=== PATIENT | female | born 1945 | race Caucasian/White ===

== ENCOUNTER 2019-02-18 15:18 | Inpatient (IN) | payer OTHER ==
[~2019-02-18] VITALS: Ht 162.6 cm; Wt 86.6 kg
--- NOTE | 2019-02-18 15:18 | NUR ---
BROUGHT IN BY [facility], PLACED IN BED #1 AND TRIAGED. REPORT GIVEN TO ONEIL
[2019-02-18 15:20] VITALS: BP_SYST 135
--- NOTE | 2019-02-18 15:30 | NUR ---
Patient brought in by EMS for C/C of sudden bowel incontinence that occurred at 1445 this afternoon. The patient reports that she was at [facility] when she had a sudden onset of symptoms, she notes a cramping sensation to lower abdomen. She reports that lost control of her bowel on the way to the woman's restroom. She reports that she was sitting on the toilet and was unable to get up for 20 minutes prior to EMS arriving on scene. She states the only dietary changes were eating sugar free candies last night, and did not eat her normal breakfast. No other changes noted, able to tolerate food or fluids. No head injury at the time, or fall. She reports that she had dizziness and lethargy after incident. No reported fever, chills, chest pain, shortness of breath, nausea, vomiting, diarrhea, slurred speech, back pain or lower extremity swelling. Will continue to follow up and monitor.
--- NOTE | 2019-02-18 15:35 | NUR ---
ER at bedside examining patient.
[2019-02-18 15:56] LABS: BASOPHILS % (AUTO) 0.5 % (0.0-2.0); EOSINOPHILS % (AUTO) 0.3 % (0.0-4.0); HEMOGLOBIN 11.6 g/dL (12.0-16.0); LYMPHOCYTES # (AUTO) 1.4 K/uL (1.0-5.5); MEAN CORPUSCULAR HEMOGLOBIN 31 pg (27-31); MEAN CORPUSCULAR HGB CONC 33 % (32-36); MEAN CORPUSCULAR VOLUME 92 fL (79.0-98.0); MONOCYTES # (AUTO) 0.9 K/uL (0.0-1.0); MONOCYTES % (AUTO) 23.1 % (1.7-9.3); NEUTROPHILS # (AUTO) 1.7 K/uL (1.8-7.7); NEUTROPHILS % (AUTO) 41.1 % (40.0-70.0); RED BLOOD CELL COUNT(AUTO) 3.82 MIL/uL (4.2-6.2); RED CELL DISTRIBUTION WIDTH 15.1 % (9.0-15.0)
[2019-02-18 16:03] LABS: ANION GAP 8 (5-15); CHLORIDE 101 mmol/L (98-107); CREATININE 0.77 mg/dL (0.55-1.30); GLUCOSE 100 mg/dL (70-99); POTASSIUM 3.7 mmol/L (3.5-5.1); SODIUM SERUM 138 mmol/L (136-145); UREA NITROGEN, BLOOD 32 mg/dL (8-21)
[2019-02-18 16:06] LABS: PROTHROMBIN TIME 10.1 SECS (9.5-12.5)
[2019-02-18 16:09] LABS: ALANINE AMINOTRANSFERASE 30 U/L (12-78); ALBUMIN 3.7 g/dL (3.4-4.8); ASPARTATE AMINOTRANSFERASE 25 U/L (10-37); TOTAL BILIRUBIN 0.3 mg/dL (0.0-1.0)
[2019-02-18 16:10] LABS: BILIRUBIN,URINE NEGATIVE (NEGATIVE); BLOOD, URINE NEGATIVE (NEGATIVE); CLARITY/URINE CLEAR (CLEAR); COLOR,URINE YELLOW (YELLOW); GLUCOSE,URINE NEGATIVE (NEGATIVE); KETONES,URINE NEGATIVE (NEGATIVE); LEUKOCYTE ESTERASE ,URINE NEGATIVE (NEGATIVE); NITRITE, URINE NEGATIVE (NEGATIVE); PH,URINE 6.5 (5.0-8.0); PROTEIN URINE NEGATIVE (NEGATIVE); UROBILINOGEN,URINE 0.2 (0.2-1.0)
[2019-02-18 16:16] LABS: ALCOHOL, BLOOD < 3 mg/dL (<10); PLATELET COUNT (AUTO) 111 K/uL (130-430)
[2019-02-18 16:22] LABS: BARBITURATE, URINE NEGATIVE (NEG <=200); BENZODIAZEPINE, URINE NEGATIVE (NEG <=150); CANNABINOID, URINE NEGATIVE (NEG <=50); COCAINE, URINE NEGATIVE (NEG <=150); METHAMPHETAMINES SCREEN,URINE NEGATIVE (NEG <=500); OPIATE, URINE NEGATIVE (NEG <=100); PHENCYCLIDINE SCREEN,URINE NEGATIVE (NEG <=25); UR TRICYCLIC ANTIDEPRESSANTS NEGATIVE (NEG <=300); URINE AMPHETAMINE NEGATIVE (NEG <=500); URINE METHADONE NEGATIVE (NEG <=200); URINE OXYCODONE SCREEN NEGATIVE (NEG <=100); URINE PROPOXYPHENE SCREEN NEGATIVE (NEG <=300)
--- NOTE | 2019-02-18 16:48 | NUR ---
Patient resting comfortably, aware we are waiting for results to come back, at bedside. Patient calm and cooperative. Will continue to follow up and monitor.
--- NOTE | 2019-02-18 17:30 | NUR ---
Patient resting comfortably, remains on monitor. Patient sleeping, aware of pending admission. Will continue to follow up.
--- NOTE | 2019-02-18 18:32 | NUR ---
Patient will be admitted to care of Dr. Lary Marmolejo. Admitted to Tele unit. Will go to room 106A. Belongings list completed. Summary report printed. Report will be given at bedside.
--- NOTE | 2019-02-18 18:44 | NUR ---
Medication reconciliation unable to be completed, spouse to bring in the medications at a later time.
--- NOTE | 2019-02-18 18:52 | NUR ---
ADMIT NOTE Received pt from ER to the floor with a diagnosis of ALOC. Admission process initiated. patient oriented to pain management, safety and call light-teach back done.
[2019-02-18 19:09] VITALS: BP_SYST 152
--- NOTE | 2019-02-18 19:25 | NUR ---
OPENING NOTES Bedside report received from Poly RAMSEY RN. Patient received lying in bed, AOx4, no s/s of acute distress noted. Breathing even and unlabored. No complaints of pain or discomfort. Patient denies feeling dizzy at this time. IV site patent, no signs of infiltration or infection noted. Patient oriented to call light, instructed to use for assistance, patient verbalized understanding. Bed is locked and at lowest position. Will continue to monitor.
--- NOTE | 2019-02-18 19:30 | NUR ---
DR BOONE CALLED Dr. Boone called for orders. Ordered for home medications to be all continued. Will carry out orders.
[2019-02-18] MEDS ORDERED: ONDANSETRON HCL 4 MG/2 ML VIAL IVP PRN (19:45)
[2019-02-18 20:00] VITALS: BP_SYST 148
--- NOTE | 2019-02-18 21:00 | NUR ---
ROUNDS/ASSISTED TO BATHROOM Patient assisted to bathroom and back to bed. No signs of discomfort noted. Breathing even and unlabored. Patient stated that she feels wobbly. Patient tolerated activity well. IVF infusing well. Call light with patient. Will continue to monitor.
[2019-02-18] MEDS: 0.45% NS 1,000 ML IV SCH (21:36)
[2019-02-18] MEDS ORDERED: CYAN100010 PO (22:31)
[2019-02-18] MEDS ORDERED: FERR-69 PO (22:31)
[2019-02-18] MEDS ORDERED: SERT25TA PO (22:31)
[2019-02-18] MEDS ORDERED: POTA20TA83 PO (22:31)
[2019-02-18] MEDS ORDERED: TURM1CAP2 PO (22:31)
[2019-02-18] MEDS ORDERED: HYDR25TA4 PO (22:31)
[2019-02-18] MEDS ORDERED: GLUC-219 PO (22:31)
[2019-02-18] MEDS ORDERED: PRO40 PO (22:31)
[2019-02-18] MEDS ORDERED: OMEG1CAP98 PO (22:31)
[2019-02-18] MEDS ORDERED: AMLO5TAB4 PO (22:36)
--- NOTE | 2019-02-18 23:00 | NUR ---
ROUNDS Patient in bed sleeping. No s/s of acute distress noted. Breathing even and unlabored. IVF infusing well. Call light with patient. Will continue to monitor.
--- NOTE | 2019-02-19 01:00 | NUR ---
ROUNDS Patient in bed sleeping. No signs of discomfort noted. Chest rise and fall even bilaterally. IVF infusing well. Call light with patient. Bed alarm on. Will continue to monitor.
[2019-02-19 03:09] VITALS: BP_SYST 149
--- NOTE | 2019-02-19 03:30 | NUR ---
NECK PAIN/VOID Patient complained of neck pain, PRN medication to be administered. Patient assisted to bathroom and back to bed, to void. Patient tolerated well. Denies feeling dizzy or light headed. Call light with patient. IVF infusing well. Will continue to monitor.
[2019-02-19] MEDS: ACETAMINOPHEN 325 MG TABLET PO PRN (03:31)
--- NOTE | 2019-02-19 04:27 | NUR ---
Neuro Consultation Paged Reason for consultation: Altered mental status Was consult called: Yes Person who was notified: Nancy Consulting Physician: Dr Latoya Hernandez Account Development Manager Specialty: Neurology Account Development Manager Ordered By: Dr Latoya Marmolejo
--- NOTE | 2019-02-19 05:00 | NUR ---
ROUNDS Patient sleeping comfortably. No signs of discomfort noted. Chest rise and fall even bilaterally. IVF infusing well. Call light with patient. Will continue to monitor.
--- NOTE | 2019-02-19 06:36 | NUR ---
CLOSING NOTES Patient in bed, awake, no s/s of acute distress noted. Breathing even and unlabored. IVF infusing well, IV site patent, no signs of infiltration or infection noted. Patient denies any pain or discomfort. No SOB. All needs met throughout shift. Fall and safety precautions maintained throughout shift. Will continue to monitor until patient care is endorsed to oncoming dayshift nurse.
[2019-02-19 07:50] LABS: HEMATOCRIT 33.4 % (36-48); WHITE BLOOD COUNT (AUTO) 3.1 K/uL (4.8-10.8)
[2019-02-19 08:00] VITALS: BP_SYST 114
[2019-02-19 08:00] LABS: ALANINE AMINOTRANSFERASE 25 U/L (12-78); ALBUMIN 3.1 g/dL (3.4-4.8); ANION GAP 3 (5-15); ASPARTATE AMINOTRANSFERASE 21 U/L (10-37); CALCIUM 8.8 mg/dL (8.4-11.0); CHLORIDE 104 mmol/L (98-107); CHOLESTEROL 136 mg/dL (<200); GLUCOSE 91 mg/dL (70-99); HDL CHOLESTEROL 38 mg/dL (>55); LDL CHOLESTEROL 80 mg/dL (<100); MEAN CORPUSCULAR HEMOGLOBIN 31 pg (27-31); MEAN CORPUSCULAR HGB CONC 33 % (32-36); MEAN CORPUSCULAR VOLUME 93 fL (79.0-98.0); PLATELET COUNT (AUTO) 98 K/uL (130-430); POTASSIUM 3.6 mmol/L (3.5-5.1); RED CELL DISTRIBUTION WIDTH 15.2 % (9.0-15.0); SODIUM SERUM 138 mmol/L (136-145); TOTAL BILIRUBIN 0.4 mg/dL (0.0-1.0); TRIGLYCERIDES 84 mg/dL (30-150); UREA NITROGEN, BLOOD 21 mg/dL (8-21)
--- NOTE | 2019-02-19 08:00 | NUR ---
Note Pt assisted in sitting up in bed to eat her breakfast. No SOB/resp distress or pain/discomfort noted at this time. IV in right AC intact and patent infusing IVF's well. Tele unit attached and intact at this time. No needs noted. Call light within reach.
[2019-02-19] MEDS ORDERED: TURMERIC ROOT EXTRACT PO SCH (09:00)
[2019-02-19] MEDS ORDERED: MANGANESE PO SCH (09:00)
[2019-02-19] MEDS ORDERED: CHONDROIT PO SCH (09:00)
[2019-02-19] MEDS ORDERED: [UNRECOGNIZED DRUG - OTHER] PO SCH (09:00)
[2019-02-19] MEDS ORDERED: TURMERIC PO SCH (09:00)
[2019-02-19] MEDS ORDERED: [UNRECOGNIZED DRUG - OTHER] PO SCH (09:00)
[2019-02-19] MEDS ORDERED: GLUCOSAM PO SCH (09:00)
[2019-02-19] MEDS: SERTRALINE HCL 50 MG TABLET PO SCH (09:19)
[2019-02-19] MEDS: FERROUS SULFATE 325 MG TABLET.DR PO SCH (09:19)
[2019-02-19] MEDS: HYDROCHLOROTHIAZIDE 25 MG TABLET (HCTZ) PO SCH (09:20)
[2019-02-19] MEDS: ASPIRIN 81 MG TAB.CHEW PO SCH (09:20)
[2019-02-19] MEDS: POTASSIUM CHLORIDE 20 MEQ TAB.PRT.SR PO SCH (09:20)
[2019-02-19] MEDS: PANTOPRAZOLE SODIUM 40 MG TAB PO SCH (09:20)
[2019-02-19] MEDS: CYANOCOBALAMIN 1000 mCg TABLET PO SCH (09:20)
[2019-02-19] MEDS: amLODIPine BESYLATE 5 MG TABLET PO SCH (09:21)
[2019-02-19] MEDS: ENOXAPARIN SODIUM 40 MG/0.4 ML SYRINGE SUBCUT SCH (09:26)
--- NOTE | 2019-02-19 09:32 | NUR ---
CONSULTATION PAGED/CALLED Reason for Consultation: [] CHRONIC REC ABD PAIN Person Who was Notified: [] LINETTE Consulting Physician: [] DR SILVESTRE FURNITURE FINISHER APPRENTICE FOR DR PARK Lead Mason Tender Specialty: [] GI Ordering Physician: [] DR Latoya BOONE
[2019-02-19 09:33] LABS: BASOPHILS % (MANUAL) 0 % (0-2); LYMPHOCYTES % (MANUAL) 60 % (20-46)
[2019-02-19 09:34] LABS: EOSINOPHILS % (MANUAL) 0 % (0-7); MONOCYTES % (MANUAL) 12 % (0-11)
--- NOTE | 2019-02-19 10:00 | NUR ---
Note Pt OOB with FWW and PT ambulating in room and hallway. Pt tolerated ambulation well. Pt's at bedside. Pt's was given all home medications to take home. (Pt had brought in home medications for staff to take down names and doses. Pt now back in bed. Call light within reach.
[2019-02-19] MEDS ORDERED: OMEGA-3/DHA/EPA/FISH OIL 1 GM CAPSULE PO ONE (10:30)
--- NOTE | 2019-02-19 11:00 | NUR ---
Note Pt had US of carotids and EEG at bedside done at this time. Pt tolerated procedure well.
[2019-02-19 11:26] VITALS: BP_SYST 124
[2019-02-19] MEDS: 0.45% NS 1,000 ML IV SCH ×2 (11:50→23:56)
--- NOTE | 2019-02-19 14:10 | NUR ---
Note Pt had Dr Hernandez at bedside at 1330, doing assessment at this time and answering questions/concerns at this time. 1410 - Pt having 2D-echo done at bedside at this time. Lab called - the stool specimen sent for C-Diff was rejected at this time due to consistency. Pt has visitor at bedside at this time. No needs noted. Call light within reach.
[2019-02-19 15:40] VITALS: BP_SYST 115
--- NOTE | 2019-02-19 16:55 | NUR ---
Note Pt resting in bed, denies any needs at this time. IVF's infusing well and tele unit attached and intact at this time. Call light within reach.
--- NOTE | 2019-02-19 18:15 | NUR ---
Note Pt sitting up in bed eating her dinner. No SOB/resp distress or pain/discomfort noted at this time. IV in right AC intact and patent infusing IVF's well. Tele unit attached and intact all shift. Pt was checked on q1 and PRN all shift for needs and care. Pt was maintained with safety precautions all shift. No needs noted at this time. Call light within reach.
--- NOTE | 2019-02-19 19:15 | NUR ---
OPENING NOTE Bedside report received from dayshift nurse. Patient received lying in bed, reading magazines, AOx4, no s/s of acute distress noted. Patient denies any pain or discomfort. Breathing is even and unlabored. IVF infusing well, IV site patent, no signs of infiltration or infection noted. Call light with patient. Bed locked and at lowest position. Will continue to monitor.
[2019-02-19 20:00] VITALS: BP_SYST 113
--- NOTE | 2019-02-19 21:00 | NUR ---
ROUNDS Patient sitting up in bed, brushing her teeth, no signs of discomfort noted. Chest rise and fall even bilaterally. IVF infusing well. Call light with patient. Will continue to monitor.
--- NOTE | 2019-02-19 23:00 | NUR ---
ROUNDS Patient in bed sleeping at this time. No s/s of acute distress noted. Breathing even and unlabored. IVF infusing well. Call light with patient. Will continue to monitor.
[2019-02-20 01:00] VITALS: BP_SYST 127
--- NOTE | 2019-02-20 01:00 | NUR ---
ROUNDS Patient sleeping comfortably. No s/s of acute distress noted. Breathing even and unlabored. IVF infusing well. Call light with patient.
--- NOTE | 2019-02-20 03:00 | NUR ---
ROUNDS Patient in bed asleep. No s/s of acute distress noted. Breathing even and unlabored. Call light with patient.
[2019-02-20] MEDS: 0.45% NS 1,000 ML IV SCH ×2 (03:59→21:59)
--- NOTE | 2019-02-20 05:00 | NUR ---
ROUNDS Patient in bed complained of a headache. PRN medication to be given. Will continue to monitor and reassess.
[2019-02-20] MEDS: ACETAMINOPHEN 325 MG TABLET PO PRN (05:18)
--- NOTE | 2019-02-20 06:46 | NUR ---
CLOSING NOTES Patient in bed asleep at this time. No s/s of acute distress noted. Breathing even and unlabored. IVF infusing well, IV site patent, no signs of infiltration or infection noted. All needs met throughout shift. Fall and safety precautions maintained throughout shift. Will continue to monitor until patient care is endorsed to oncoming dayshift nurse.
[2019-02-20 08:00] VITALS: BP_SYST 123
--- NOTE | 2019-02-20 08:00 | NUR ---
RN OPENING NOTE PATIENT IS RESTING IN BED. ALERT ORIENTED X4 , PATIENT WAS ASSESSED, DENIES PAIN OR DISCOMFORT. PATIENT VITAL SIGNS ARE STABLE. PATIENT BED AT LOW POSITION AND CALL LIGHT WITHIN REACH, WILL PASS HER MED AT 0900
[2019-02-20] MEDS: HYDROCHLOROTHIAZIDE 25 MG TABLET (HCTZ) PO SCH (08:03)
[2019-02-20] MEDS: CYANOCOBALAMIN 1000 mCg TABLET PO SCH (08:04)
[2019-02-20] MEDS: SERTRALINE HCL 50 MG TABLET PO SCH (08:04)
[2019-02-20] MEDS: ASPIRIN 81 MG TAB.CHEW PO SCH (08:05)
[2019-02-20] MEDS: FERROUS SULFATE 325 MG TABLET.DR PO SCH (08:07)
[2019-02-20] MEDS: amLODIPine BESYLATE 5 MG TABLET PO SCH (08:08)
[2019-02-20] MEDS: PANTOPRAZOLE SODIUM 40 MG TAB PO SCH (08:09)
[2019-02-20] MEDS: POTASSIUM CHLORIDE 20 MEQ TAB.PRT.SR PO SCH (08:10)
[2019-02-20] MEDS: ENOXAPARIN SODIUM 40 MG/0.4 ML SYRINGE SUBCUT SCH (08:18)
[2019-02-20] MEDS ORDERED: OMEGA-3/DHA/EPA/FISH OIL 1 GM CAPSULE PO SCH (09:00)
--- NOTE | 2019-02-20 10:00 | NUR ---
RN NOTE PATIENT WAS GIVEN HER MEDIATIONS AND SERVED HER BREAKFAST. PATIENT IS SUPPOSED TO HAVE AN ULTRASOUND ORDERED BY DR. SILVESTRE. PATIENT HAS TO BE FASTING FOR 8 HOURS. BUT PATIENT SAID SHE CAN'T FAST TILL 5 PM, WILL CALL DR. SILVESTRE TO SEE IF WE CAN POSTPONE THE US TILL TOMORROW AM. TELE WAS D/C FROM THE PATIENT , PATIENT IS NOW MED SURG.
--- NOTE | 2019-02-20 11:24 | NUR ---
Cardiac consult called: for Dr. Cabezas, regarding chest pain, ordered by Dr. Maromlejo, spoke with Lorraine. Dr. Claudio Gonzalez home care consultant.
[2019-02-20 11:27] VITALS: BP_SYST 121
--- NOTE | 2019-02-20 12:00 | NUR ---
RN NOTE PATIENT WAS SERVED HER LUNCH, A NEW SALINE LOCK WAS INSERTED FOR THE PATIENT IN HER LEFT AC. BY BED SIDE WILL CONTINUE TO MONITOR
--- NOTE | 2019-02-20 14:00 | NUR ---
RN NOTE PATIENT WAS EDUCATED ABOUT FALL PREVENTION. JUST LEFT AND PATIENT WAS LEFT TO WREST AND TAKE A NAP WILL CONTINUE TO MONITOR.
[2019-02-20 15:48] VITALS: BP_SYST 106
--- NOTE | 2019-02-20 16:00 | NUR ---
RN NOTE PATIENT IS RESTING IN BED. ALERT ORIENTED X4, DENIES PAIN OR DISCOMFORT. PATIENT'S WAS EDUCATED ABOUT HER DISEASE PROCESS AND VERBALIZED UNDERSTANDING. WILL CONTINUE TO MONITOR.
--- NOTE | 2019-02-20 18:00 | NUR ---
RN CLOSING NOTE PATIENT WAS SERVED HER DINNER. PATIENT DENIES PAIN OR DISCOMFORT, PATIENT WAS ASSISTED TO THE BATH ROOM. WILL CONTINUE TO MONITOR . SCD WAS APPLIED TO THE PATIENT. WILL ENDORSE TO NEXT SHIFT.
--- NOTE | 2019-02-20 19:30 | NUR ---
OPENING NOTE Received report from Adilia. Patient resting in bed awake, alert, oriented x4. Breathing unlabored and even on room air. No signs of distress, no needs at this time. Fall and safety precautions in place. Bed in lowest position, brake on, call light on within reach. IVF infusing as ordered. Family at the bedside. Will continue to monitor.
[2019-02-20 20:09] VITALS: BP_SYST 122
--- NOTE | 2019-02-20 21:11 | NUR ---
Patient resting in bed awake, alert, oriented x4. Breathing unlabored and even on room air. No signs of distress, no needs at this time. Fall and safety precautions in place. Bed in lowest position, brake on, call light on within reach. IVF infusing as ordered. Will continue to monitor.
--- NOTE | 2019-02-20 22:01 | NUR ---
New IVF hung
[2019-02-20 23:28] VITALS: BP_SYST 108
--- NOTE | 2019-02-21 | NUR ---
Patient now NPO for abd ultrasound in AM
--- NOTE | 2019-02-21 02:07 | NUR ---
Patient resting in bed with eyes closed. Breathing unlabored and even on room air. No signs of distress, no needs at this time. Fall and safety precautions in place. Bed in lowest position, brake on, call light on within reach. IVF infusing as ordered. Will continue to monitor.
--- NOTE | 2019-02-21 06:46 | NUR ---
CLOSING NOTE Patient resting in bed with eyes closed. Breathing unlabored and even on room air. No signs of distress, no needs at this time. Fall and safety precautions in place. Bed in lowest position, brake on, call light on within reach. IVF infusing as ordered. Will endorse cares to day shift nurse.
[2019-02-21 07:43] LABS: HEMATOCRIT 32.2 % (36-48); HEMOGLOBIN 10.7 g/dL (12.0-16.0); MEAN CORPUSCULAR HEMOGLOBIN 31 pg (27-31); MEAN CORPUSCULAR HGB CONC 33 % (32-36); MEAN CORPUSCULAR VOLUME 92 fL (79.0-98.0); PLATELET COUNT (AUTO) 94 K/uL (130-430); RED CELL DISTRIBUTION WIDTH 15.5 % (9.0-15.0); WHITE BLOOD COUNT (AUTO) 3.4 K/uL (4.8-10.8)
--- NOTE | 2019-02-21 07:45 | NUR ---
INITIAL ROUNDS Received pt AAOx4, no c/o dizziness or lightheadedness, no s/s resp distress, no c/o pain or discomfort. Pt NPO for ABD US this morning. Plan of care for the day reviewed with pt-pt verbalized her understanding. Pain management, skin and safety discussed-teach back done. Call light within reach.
[2019-02-21 08:05] LABS: ALANINE AMINOTRANSFERASE 21 U/L (12-78); ANION GAP 7 (5-15); ASPARTATE AMINOTRANSFERASE 18 U/L (10-37); CALCIUM 8.5 mg/dL (8.4-11.0); CHLORIDE 104 mmol/L (98-107); CREATININE 0.72 mg/dL (0.55-1.30); GLUCOSE 86 mg/dL (70-99); LIPASE 81 U/L (73-393); POTASSIUM 3.5 mmol/L (3.5-5.1); SODIUM SERUM 141 mmol/L (136-145); TOTAL BILIRUBIN 0.4 mg/dL (0.0-1.0); UREA NITROGEN, BLOOD 20 mg/dL (8-21)
[2019-02-21 08:24] VITALS: BP_SYST 126
[2019-02-21 08:33] LABS: ATYPICAL LYMPHOCYTES % 2 % (0-0); BASOPHILS % (MANUAL) 0 % (0-2); EOSINOPHILS % (MANUAL) 1 % (0-7); LYMPHOCYTES % (MANUAL) 54 % (20-46); MONOCYTES % (MANUAL) 18 % (0-11)
[2019-02-21] MEDS: ASPIRIN 81 MG TAB.CHEW PO SCH (09:51)
[2019-02-21] MEDS: CYANOCOBALAMIN 1000 mCg TABLET PO SCH (09:51)
[2019-02-21] MEDS: POTASSIUM CHLORIDE 20 MEQ TAB.PRT.SR PO SCH (09:51)
[2019-02-21] MEDS: amLODIPine BESYLATE 5 MG TABLET PO SCH (09:52)
[2019-02-21] MEDS: FERROUS SULFATE 325 MG TABLET.DR PO SCH (09:53)
[2019-02-21] MEDS: PANTOPRAZOLE SODIUM 40 MG TAB PO SCH (09:53)
[2019-02-21] MEDS: SERTRALINE HCL 50 MG TABLET PO SCH (09:54)
[2019-02-21] MEDS: HYDROCHLOROTHIAZIDE 25 MG TABLET (HCTZ) PO SCH (09:54)
[2019-02-21] MEDS: ENOXAPARIN SODIUM 40 MG/0.4 ML SYRINGE SUBCUT SCH (09:56)
--- NOTE | 2019-02-21 10:05 | NUR ---
TO MRI Pt left floor via wheelchair to MRI in no distress.
--- NOTE | 2019-02-21 11:02 | NUR ---
BACK FROM MRI Pt back from MRI in no distress.
[2019-02-21 11:30] VITALS: BP_SYST 111
--- NOTE | 2019-02-21 12:25 | NUR ---
ROUNDS Pt sitting up in bed eating her lunch, no s/s resp distress, no c/o dizziness, no c/o pain or discomfort. No diarrhea today. Pt stated she hopes to go home today. Needs met, call light within reach.
[2019-02-21 13:03] VITALS: BP_SYST 111
--- NOTE | 2019-02-21 15:50 | NUR ---
iv dc'd site inspected, cannula intact. no signs of bleeding, no swelling, no signs of redness
[2019-02-21 15:56] VITALS: BP_SYST 105
--- NOTE | 2019-02-21 16:45 | NUR ---
PATIENT DISCHARGED HOME Patient given medication reconciliation form and D/C instructions. Exit Care on Syncope, HTN, Dehydration explained and provided. Patient verbalized her understanding. MD discussed with patient the results and treatment provided. Ambulatory with steady gait for discharge to home. Patient in stable condition, ID band removed. IV catheter removed, intact and dressing applied, no active bleeding. Patient educated on pain management. All belongings sent with patient. Patient left floor via wheelchair to private vehicle in no distress.
[2019-02-22 12:10] LABS: HEPATITIS A AB, IgM Negative (Negative); HEPATITIS B CORE AB, IgM Negative (Negative); HEPATITIS B SURFACE AG Negative (Negative)
[2019-02-22 17:21] LABS: ANTI NUCLEAR AB WITH REFLEX Negative (Negative)
[2019-02-23 10:07] LABS: ANTI-SMOOTH MUSCLE AB 12 Units (0-19)
[2019-02-23 14:13] LABS: ATYPICAL pANCA <1:20 titer (Neg:<1:20); CYTOPLASMIC (C-ANCA) <1:20 titer (Neg:<1:20); CYTOPLASMIC (P-ANCA) <1:20 titer (Neg:<1:20)
--- NOTE | 2019-02-23 14:44 | NUR ---
DISCHARGE FOLLOW UP CALL: CHIEF SUBSTATION OPERATOR phoned pt @ [phone] who states she is doing well but "still a little tired from the hospitalization". Pt states she has an appointment with PCP on Thursday 03/01 and will request for a referral to see a GI MD. Pt states no new medications was prescribed and CHIEF SUBSTATION OPERATOR and she does not have questions/concerns about the discharge instructions. CHIEF SUBSTATION OPERATOR offered a follow up call from the blood bank technologist, pt agreed and Myrna Saldaña (blood bank technologist) notified via email. CHIEF SUBSTATION OPERATOR encouraged pt to read discharge instructions prior to appointment; pt agreed. No further follow up call needed at this time.
== END 2019-02-21 16:45 | disposition home or self-care (01) | DRG 312 ==
LOC: SED 15:18 → STU 17:41 → SMU 02-20 10:33
PROVIDERS: ADMIT Internal Medicine; ATTEND Internal Medicine
DX: R55 Syncope and collapse (principal); D61.818 Other pancytopenia; R07.89 Other chest pain; E66.9 Obesity, unspecified; G89.29 Other chronic pain; I10 Essential (primary) hypertension; Z82.49 Family history of ischemic heart disease and other diseases of the circulatory system; Z90.49 Acquired absence of other specified parts of digestive tract; Z98.84 Bariatric surgery status; Z68.32 Body mass index [BMI] 32.0-32.9, adult
CPT/HCPCS: 36415; 70450-TC; 70551; 71045; 76700-TC; 80053; 80061; 80074; 80307; 81003; 82607; 83516; 83690-TC; 84484; 85007; 85025; 85027; 85610-TC; 85730-TC; 86038; 86256; 93005; 93306; 93880; 95816; 99285; G0378; G0482; J1650